=== PATIENT | female | born 1955 | race Caucasian/White ===

== ENCOUNTER 2018-05-04 05:52 | Day surgery (SDC) | payer OTHER ==
[2018-05-04] MEDS ORDERED: MIDAZOLAM 1 MG/ML 2 ML INJ (08:19)
[2018-05-04] MEDS ORDERED: FENTAnyl 50 MCG/ML VIAL (08:19)
== END 2018-05-04 11:55 | disposition home or self-care (01) ==
LOC: GIL 05:52
DX: Z12.11 Encounter for screening for malignant neoplasm of colon (principal); K57.90 Diverticulosis of intestine, part unspecified, without perforation or abscess without bleeding; K64.8 Other hemorrhoids
CPT/HCPCS: 45378